=== PATIENT | female | born 1990 | race Hispanic/Latino ===

== ENCOUNTER 2018-05-05 22:01 | Emergency (ER) | payer OTHER ==
[~2018-05-05] VITALS: Ht 157.5 cm; Wt 106.6 kg
[~2018-05-05 22:01] MED LIST: AMITRIPTYLINE H25 MG PO; LISINOPRIL-HCT1 EAC2 PO; MICROGESTIN1 EAC1 PO; PHENTERMINE H37.5 MG PO
--- OUTSIDE RECORDS SUMMARY | 2018-05-05 22:04 | XMS REPORT | Encounter Summary ---
Author Organization Unknown Address [address] [place] [address] Phone [phone] Reason for Visit Medical Complaint Instructions 1. Influenza-like symptoms rapid flu (A+B) 2. Tachycardia Discussion Note: None recorded. Patient educational handouts: No information available. Plan of Care Patient Instructions otc tylenol and ibuprofen for fever and body aches. increase fluids. follow up pcp Reminders Provider Appointments None recorded. Lab Rapid Flu (A+B) 10/18/2016 [facility] Referral None recorded. Procedures None recorded. Surgeries None recorded. Imaging None recorded. Medications Name Start Date lisinopril 10 mg-hydrochlorothiazide 12.5 mg tablet sulfamethoxazole 800 mg-trimethoprim 160 mg tablet Xopenex HFA 45 mcg/actuation aerosol inhaler Medications Administered None recorded. Vitals Height Weight BMI Blood Pressure 5 ft 2 in 221 lbs 40.4 110/80 Lab Results Date Name Specimen Result Interpretation Description Value Range Status Address Rapid Flu (A+B) Influenza a negative [facility]: [address] [place] [address] Influenza B negative [facility]: [address] [place] [address] Allergies Code Code System Name Reaction Severity Onset 6922 RxNorm Metronidazole Problems Name Status Onset Date Source Candidiasis of Vagina Active Encounter Acute Conjunctivitis Active Encounter Dysfunction of Eustachian Tube Active Encounter Acute Sinusitis Active Encounter Acute Maxillary Sinusitis Active Encounter Acute Pharyngitis Active Encounter Acute Tonsillitis Active Encounter Acute Upper Respiratory Infection Active Encounter Allergic Rhinitis Active Encounter Exacerbation of Asthma Active Encounter Indigestion Active Encounter Appendicitis Active History Nausea and Vomiting Active Encounter Right Lower Quadrant Pain Active Encounter Procedures Date Name Performed by 07/10/2005 Dilation and Curettage Information not available Cholecystectomy Information not available Vaccine List Vaccine Type influenza, injectable, quadrivalent 03/09/2016 meningococcal MCV4P 02/16/2012 Tdap 08/05/2007 Social History Smoking Status Never Smoker Past Encounters 10/18/2016 Influenza-like Symptoms; Tachycardia SHARITA Diana-C: [address] [place] [address], Ph. History of Present Illness Awdbt-Lrsufrdteb-Hhyqtpi Reported By: Patient HPI: Location: head/sinuses. Quality: nasal/sinus congestion. Duration: 2days. Severity: moderate. Onset/Timing: gradual. Context: no foreign travel, non- smoker, sick contact. Modifying factors: OTC medication. Associated Symptoms: no sputum production, no shortness of breath, no wheezing, no change in number of pillows needed to sleep at night, no sweats, no significant weight gain, no significant weight loss, no morning cough, no sore throat, no vomiting, no diarrhea, no rash, no nausea, no fever, no headache, fatigue, fever, muscle aches Review of Systems:ROS as noted in the HPI Review of Systems Basic Reported By: Patient Physical Exam Adult Basic, Adult Female Complete Reported By: Patient Constitutional: General Appearance: obese. Level of Distress: NAD. Ambulation: ambulating normally Psychiatric: Mental Status: active and alert Eyes: Lids and Conjunctivae: non-injected, no discharge Dxu-Ibhe-Dcggp-Throat: Ears: no lesions on external ear, no outer ear tenderness, EACs clear, TMs clear. Hearing: no hearing loss. Nose: no lesions on external nose, nasal discharge--rhinorrhea; congestion. Lips, Teeth, and Gums: no mouth or lip ulcers. Oropharynx: moist mucous membranes, no erythema, no exudates, tonsils not enlarged Neck: Neck: trachea midline. Lymph Nodes: no cervical LAD Lungs: Respiratory effort: no dyspnea, no tachypnea, no use of accessory muscles, no intercostal retractions. Auscultation: breath sounds normal Cardiovascular: Heart Auscultation: no murmurs, tachycardia
--- OUTSIDE RECORDS SUMMARY | 2018-05-05 22:04 | XMS REPORT | Encounter Summary ---
Author Organization Unknown Address [address] [place] [address] Phone [phone] Reason for Visit Medical Complaint Instructions 1. Gastroenteritis gastroenteritis: care instructions oral rehydration: care instructions loperamide 2 mg capsule ondansetron 4 mg disintegrating tablet Discussion Note Pt is in no apparent acute distress; Verbalizes understanding of and agreement with all instructions with no questions at this time. Plan of Care Patient Instructions Take all medications as directed. Follow up with your PCP as needed. Seek additional medical care with new or worsening symptoms, or if symptoms do not resolve in 3-4 days. Thank you for allowing me to participate in your healthcare! Reminders Provider Appointments None recorded. Lab None recorded. Referral None recorded. Procedures None recorded. Surgeries None recorded. Imaging None recorded. Medications Name Start Date lisinopril 10 mg-hydrochlorothiazide 12.5 mg tablet loperamide 2 mg capsule 2 capsules PO x1, then 1 capsule PO after each loose stool; Max: 8 capsules/day ondansetron 4 mg disintegrating tablet Take 2 tablets every 12 hours by oral route as needed. ProAir HFA 90 mcg/actuation aerosol inhaler propranolol 20 mg tablet Medications Administered None recorded. Vitals Height Weight BMI Blood Pressure 5 ft 2 in 230 lbs 42.1 kg/m2 118/65 mm[Hg] Lab Results None recorded. Allergies Code Code System Name Reaction Severity Status Onset 6922 RxNorm Metronidazole Active Problems Name Status Onset Date Source Candidiasis of Vagina Active Encounter Acute Conjunctivitis Active Encounter Dysfunction of Eustachian Tube Active Encounter Acute Maxillary Sinusitis Active Encounter Acute Pharyngitis Active Encounter Acute Tonsillitis Active Encounter Acute Upper Respiratory Infection Active Encounter Allergic Rhinitis Active Encounter Exacerbation of Asthma Active Encounter Indigestion Active Encounter Nausea and Vomiting Active Encounter Right Lower Quadrant Pain Active Encounter Procedures Date Name Performed by 07/10/2005 Dilation and Curettage Information not available Cholecystectomy Information not available Vaccine List Vaccine Type influenza, injectable, quadrivalent 03/10/2016 meningococcal MCV4P 02/16/2012 Tdap 08/06/2007 Social History Smoking Status Never Smoker Past Encounters 11/05/2017 Gastroenteritis Ray Tuttle, [employer]UCK[employer] CHECKER-C: [address] [facility], [place] [address], Ph. History of Present Illness Fzvwud-Tonixkyi-Stbbvjln / Abdominal Pain Reported By: Patient HPI: Quality: watery, frequent. Severity: severe, causing awakening from sleep. Duration: present for < 1 week. Onset/Timing: worse with meals, 4-10 times a day. Context: no recent travel, possible food source. Aggravating factors: eating, fatty foods. Associated Symptoms: no excess gas, no fever/chills, no rash, no joint pain, no weight loss, no nausea, no vomiting, no heartburn, no blood in stool, no mucus in stool, no black or tarry stools, no weakness, no nutrient deficiency, no headache, no feeling of fullness/mass in throat, no muscle aches, no bitter taste in the mouth, no difficulty swallowing (dysphagia), abdominal pain, cramping, bloating Review of Systems:ROS as noted in the HPI Review of Systems Basic Reported By: Patient Physical Exam Adult Basic, Adult Female Complete Reported By: Patient Constitutional: General Appearance: healthy-appearing, well-nourished, well-developed. Level of Distress: NAD. Ambulation: ambulating normally Psychiatric: Mental Status: active and alert. Orientation: to time, to place, to person Eyes: Lids and Conjunctivae: non-injected, no discharge, no pallor. Pupils: PERRLA. Corneas: grossly intact. EOM: EOMI. Lens: clear. Sclerae: non-icteric. Vision: acuity grossly intact Ako-Deat-Dzqze-Throat: Ears: no lesions on external ear, no outer ear tenderness, EACs clear, TMs clear. Hearing: no hearing loss. Nose: no lesions on external nose, nares patent, no septal deviation, nasal passages clear, no sinus tenderness, no nasal discharge. Lips, Teeth, and Gums: no mouth or lip ulcers, no bleeding gums, normal dentition. Oropharynx: moist mucous membranes, no erythema, no exudates, tonsils not enlarged Neck: Neck: supple, trachea midline, no masses, FROM. Lymph Nodes: no cervical LAD, no supraclavicular LAD Lungs: Respiratory effort: no dyspnea, no tachypnea, no use of accessory muscles, no intercostal retractions. Auscultation: breath sounds normal Cardiovascular: Heart Auscultation: RRR, no murmurs Neurologic: Gait and Station: normal gait, normal station Skin: Inspection and palpation: no rash, no lesions Abdomen: Bowel Sounds: diminished. Inspection and Palpation: soft, non-distended, no guarding, no rebound tenderness, no masses, no CVA tenderness, epigastric tenderness. Liver: non-tender, no hepatomegaly. Spleen: non-tender, no splenomegaly. Hernia: none palpable
--- OUTSIDE RECORDS SUMMARY | 2018-05-05 22:04 | XMS REPORT | Continuity of Care Document ---
Author Author [facility] Address Unknown Phone Unavailable Problems Problem Status Onset Date Classification Date Reported Comments Source Cough 01/28/2018 Diagnosis 01/28/2018 [facility] Body mass index 30+ - obesity 01/28/2018 Diagnosis 01/28/2018 [facility] Fluid level behind tympanic membrane 01/28/2018 Diagnosis 01/28/2018 [facility] Pain in throat 01/28/2018 Diagnosis 01/28/2018 [facility] Seasonal allergic rhinitis 01/28/2018 Diagnosis 01/28/2018 [facility] Gastroenteritis 11/05/2017 Diagnosis 11/05/2017 [facility] Influenza-like symptoms 10/18/2016 Diagnosis 10/18/2016 [facility] Tachycardia 10/18/2016 Diagnosis 10/18/2016 [facility] Allergic Rhinitis Problem 01/28/2018 [facility] Candidiasis of Vagina Problem 11/05/2017 [facility] Acute Conjunctivitis Problem 11/05/2017 [facility] Dysfunction of Eustachian Tube Problem 11/05/2017 [facility] Acute Maxillary Sinusitis Problem 11/05/2017 [facility] Acute Pharyngitis Problem 11/05/2017 [facility] Acute Tonsillitis Problem 11/05/2017 [facility] Acute Upper Respiratory Infection Problem 11/05/2017 [facility] Exacerbation of Asthma Problem 11/05/2017 [facility] Indigestion Problem 11/05/2017 [facility] Nausea and Vomiting Problem 11/05/2017 [facility] Right Lower Quadrant Pain Problem 11/05/2017 [facility] Acute Sinusitis Problem 10/18/2016 [facility] Appendicitis Problem 10/18/2016 [facility] Medications Medication Details Route Status Patient Instructions Ordering Provider Order Date Source benzonatate 100 MG Oral Capsule benzonatate 100 mg capsule one to two three caps TID prn #60 Active [facility] Hydrochlorothiazide 12.5 MG / Lisinopril 10 MG Oral Tablet lisinopril 10 mg-hydrochlorothiazide 12.5 mg tablet Active [facility] Medrol (Adam) 4 mg tablets in a dose pack Medrol (Adam) 4 mg tablets in a dose pack as directed Active [facility] 200 ACTUAT Albuterol 0.09 MG/ACTUAT Metered Dose Inhaler [ProAir] ProAir HFA 90 mcg/actuation aerosol inhaler Active [facility] Propranolol Hydrochloride 20 MG Oral Tablet propranolol 20 mg tablet Active [facility] topiramate 50 MG Oral Tablet topiramate 50 mg tablet Active [facility] Loperamide Hydrochloride 2 MG Oral Capsule loperamide 2 mg capsule 2 capsules PO x1, then 1 capsule PO after each loose stool; Max: 8 capsules/day Active [facility] Ondansetron 4 MG Disintegrating Oral Tablet ondansetron 4 mg disintegrating tablet Take 2 tablets every 12 hours by oral route as needed. Active [facility] Sulfamethoxazole 800 MG / Trimethoprim 160 MG Oral Tablet sulfamethoxazole 800 mg-trimethoprim 160 mg tablet Active [facility] 200 ACTUAT Levalbuterol 0.045 MG/ACTUAT Metered Dose Inhaler [Xopenex] Xopenex HFA 45 mcg/actuation aerosol inhaler Active [facility] Allergies, Adverse Reactions, Alerts Substance Category Reaction Severity Reaction type Status Date Reported Comments Source Metronidazole Allergy to substance 07/28/2011 [facility] Immunizations Immunization Date Given Site Status Last Updated Comments Source influenza, injectable, quadrivalent 03/10/2016 completed [facility] meningococcal MCV4P 02/16/2012 completed [facility] Tdap 08/06/2007 completed [facility] Results Order Name Results Value Reference Range Date Interpretation Comments Source Influenza A negative 10/18/2016 [facility] Influenza B negative 10/18/2016 [facility] Vital Signs Vital Sign Value Date Comments Source Diastolic (mm Hg) 80 01/28/2018 [facility] Height 62 01/28/2018 [facility] Systolic (mm Hg) 118 01/28/2018 [facility] Weight 227 01/28/2018 [facility] Diastolic (mm Hg) 65 11/05/2017 [facility] Height 62 11/05/2017 [facility] Systolic (mm Hg) 118 11/05/2017 [facility] Weight 230 11/05/2017 [facility] Diastolic (mm Hg) 80 10/18/2016 [facility] Height 62 10/18/2016 [facility] Systolic (mm Hg) 110 10/18/2016 [facility] Weight 221 10/18/2016 [facility] Encounters Location Location Details Encounter Type Encounter Number Reason For Visit Attending Provider ADM Date DC Date Status Source [place] - [facility] - [id number] Miguel Live, CORNICE UPHOLSTERER-C: [address] [place] [address], Ph. [id number] Miguel Live 10/18/2016 [facility] [place] - [facility] - [id number] BRITTA NewbyP-C: [address] [place] [address], Ph. [id number] Ray Tuttle 11/05/2017 [facility] [place] - [facility] - [id number] DAVID Donahue-C: [address] [place] [address], Ph. [id number] Lisy Low 01/28/2018 [facility] Procedures Procedure Code Date Perfomer Comments Source Dilation and Curettage 93068 07/10/2005 [facility] Dilation and Curettage 07/10/2005 [facility] Cholecystectomy [facility]
--- OUTSIDE RECORDS SUMMARY | 2018-05-05 22:04 | XMS REPORT | Clinical Summary ---
Author Author [facility] Address Unknown Phone Unavailable Care Team Providers Care Adolescent Counselor Name Role Phone Argelia Randolph MD PCP Allergies Active Allergy Reactions Severity Noted Date Comments Metronidazole Other (See Comments) 11/24/2016 High fever and flu like symptoms. Current Medications Prescription Sig. Disp. Refills Start End Date Status Date LISINOPRIL-HCTZ 10-12.5 daily. Active MG COMBO DOSE Active Problems Problem Noted Date Vulval boil 11/24/2016 Overview: On mons, treat with Bactrim Well woman exam with routine gynecological exam 11/24/2016 Encounters Date Type Specialty Care Team Description 02/20/2018 [employer] [facility] Ivis Bruner MD Routine medical exam Wellness Cynthia Silva MA (Primary Dx) after 05/04/2017 Family History Medical History Relation Name Comments Diabetes Father Mikey borderline diabetic Cervical cancer Maternal Aunt Diabetes Sister Cordelia diabetic Relation Name Status Comments Father Mikey Maternal Aunt Sister Cordelia Social History Tobacco Use Types Packs/Day Years Used Date Never Smoker Smokeless Tobacco: Never Used Alcohol Use Drinks/Week oz/Week Comments Yes on ocassion, maybe once a month if that Sex Assigned at Date Recorded Not on file Last Filed Vital Signs Not on file Plan of Treatment Health Maintenance Due Date Last Done Comments INFLUENZA VACCINE 02/07/2018 CERVICAL CANCER SCREENING 11/25/2019 11/24/2016 Procedures Procedure Name Priority Date/Time Associated Diagnosis Comments WELLNESS EVENT QFT Routine 02/20/2018 Routine medical exam Results for this 1:40 PM CDT procedure are in the results section. after 05/04/2017 Results * Wellness event QFT (02/20/2018 1:40 PM) Quantiferon TB gold plus Negative Negative [facility] Comment: Interpretive Data: Quantiferon TB Gold Plus Interferon gamma release is measured for specimens from each of the four collection tubes. A qualitative result (Negative, Positive, or Indeterminate) is based on interpretation of the four values, NIL, MITOGEN minus NIL (MITOGEN-NIL), TB1 minus NIL (TB1-NIL), and TB2 minus NIL (TB2-NIL). The NIL value represents nonspecific reactivity produced by the patient specimen. The MITOGEN-NIL value serves as the positive control for the patient specimen, demonstrating successful lymphocyte activity. The TB1-NIL tube specifically detects CD4+ lymphocyte reactivity, specifically stimulated by the TB1 antigens. The TB2-NIL tube detects both CD4+ and CD8+ lymphocyte reactivity, stimulated by TB2 antigens. An overall Negative result does not completely rule out TB infection. A false-positive result in the absence of other clinical evidence of TB infection is not uncommon. Refer to: Updated Guidelines for Using Interferon Gamma Release Assays to Detect Mycobacterium tuberculosis Infection --- [place], 2010 (http://www.cdc.gov/mmwr/previ ew/mmwrhtml/qg8915n2.htm), for more information concerning test performance in low-prevalence populations and use in occupational screening. Quantiferon plus TB1 0.00 0.00 - 0.34 IU/mL [facility] minus NIL Quantiferon plus TB2 0.00 0.00 - 0.34 IU/mL [facility] minus NIL Quantiferon mitogen minus >10.00 IU/mL [facility] NIL Quantiferon NIL 0.10 IU/mL [facility] Comment: Performed by [facility], [address] [place], [place] [id number] [email or web address], Berto Washington MD - Lab. Director Specimen Serum Performing Organization Address City/State/Zipcode Phone Number [facility] [address] [place] [address] after 05/04/2017 Insurance Payer Benefit Subscriber ID Type Phone Address Plan / Group KRYSTEN JAMISON xxxxxxxxxxx HMO ACCESS/NET WORK Home: [address] [place], [place] [phone] [place] [address]
--- OUTSIDE RECORDS SUMMARY | 2018-05-05 22:04 | XMS REPORT | Encounter Summary ---
Author Organization Unknown Address [address] [place] [address] Phone [phone] Care Team Providers Care Chemical Analyst Name Role Phone Danna Seymour [facility] 3 [phone] Reason for Visit Medical Complaint Instructions 1. Seasonal allergic rhinitis seasonal allergies: care instructions Medrol (Adam) 4 mg tablets in a dose pack 2. Pain in throat sore throat: care instructions 3. Fluid level behind tympanic membrane 4. Body mass index 30+ - obesity body mass index: care instructions 5. Cough cough: care instructions benzonatate 100 mg capsule Discussion Note discussed with patient if symptoms and signs increase or persist return to clinic or follow up with PCP. May take over the counter tylenol to ease sinus discomfort, or ibuprofen if indicated. patient verbalized understanding. Plan of Care Reminders Provider Appointments None recorded. Lab None recorded. Referral None recorded. Procedures None recorded. Surgeries None recorded. Imaging None recorded. Medications Name Start Date benzonatate 100 mg capsule one to two three caps TID prn #60 lisinopril 10 mg-hydrochlorothiazide 12.5 mg tablet Medrol (Adam) 4 mg tablets in a dose pack as directed ProAir HFA 90 mcg/actuation aerosol inhaler propranolol 20 mg tablet topiramate 50 mg tablet Medications Administered None recorded. Vitals Height Weight BMI Blood Pressure 5 ft 2 in 227 lbs 41.5 kg/m2 118/80 mm[Hg] Lab Results None recorded. Allergies Code Code System Name Reaction Severity Status Onset 6922 RxNorm Metronidazole Active Problems Name Status Onset Date Source Allergic Rhinitis Active Encounter Procedures Date Name Performed by 07/10/2005 Dilation and Curettage Information not available Cholecystectomy Information not available Vaccine List Vaccine Type influenza, injectable, quadrivalent 03/10/2016 meningococcal MCV4P 02/16/2012 Tdap 08/06/2007 Social History Smoking Status Never Smoker Past Encounters 01/28/2018 Seasonal Allergic Rhinitis; Pain in Throat; Fluid Level behind Tympanic Membrane; Body Mass Index 30+ - Obesity; Cough Lisy Low PA-C: [address] [place] [address], Ph. History of Present Illness Ivgvt-Llqpoidfym-Tufvlau Reported By: Patient HPI: Location: head/sinuses, throat. Quality: productive cough, sore throat, nasal/sinus congestion, hacking cough. Duration: 4days. Severity: mild. Onset/Timing: sudden. Context: no sick contacts, no foreign travel, non-smoker. Modifying factors: OTC medication. Associated Symptoms: no sputum production, no shortness of breath, no wheezing, no change in number of pillows needed to sleep at night, no sweats, no significant weight gain, no significant weight loss, no vomiting, no diarrhea, no rash, no nausea, no fever, no muscle aches, no headache, morning cough, sore throat; productive cough with white to clear sputum, bloody nasal discharge Review of Systems Basic Reported By: Patient Constitutional: Constitutional: no fever Eyes: Eyes: no eye complaints Hxqs-Tobq-Fadmw-Throat: Ears: ; plugged up ears R>L. Nose: nose/sinus problems. Mouth/Throat: no bleeding gums, no mouth complaints, no teeth problems, sore throat Cardiovascular: Cardiovascular: no chest pain, no known heart murmur, shortness of breath Respiratory: Respiratory: no wheezing, no shortness of breath, cough Gastrointestinal: Gastrointestinal: no abdominal pain, no vomiting / diarrhea Genitourinary: Genitourinary: no urinary complaints, no discharge Musculoskeletal: Musculoskeletal: no muscle aches, no muscle weakness, no arthralgias/joint pain, no back pain Skin: Skin: no abnormal / changing mole, no jaundice, no rashes Neurologic: Neurologic: no loss of consciousness, no weakness, no numbness, no seizures, no dizziness, no headaches Physical Exam Adult Basic Reported By: Patient Constitutional: General Appearance: obese. Level of Distress: NAD. Ambulation: ambulating normally Psychiatric: Mental Status: active and alert. Orientation: to time, to place, to person Eyes: Lids and Conjunctivae: non-injected, no discharge, no pallor. Pupils: PERRLA. EOM: EOMI. Sclerae: non-icteric. Vision: acuity grossly intact Nzi-Qacq-Rmhlh-Throat: Ears: no lesions on external ear, no outer ear tenderness, EACs clear, TMs clear, middle ear fluid. Hearing: no hearing loss. Nose: no lesions on external nose, nares patent, no septal deviation, nasal passages clear, no sinus tenderness, nasal discharge, nasal discharge--purulent, nasal discharge--rhinorrhea, post nasal drip; no bloody visible discharge. Lips, Teeth, and Gums: no mouth or lip ulcers, no bleeding gums, normal dentition. Oropharynx: moist mucous membranes, no erythema, no exudates, tonsils not enlarged; PND at post pharynx Neck: Neck: supple, trachea midline, no masses, FROM. Lymph Nodes: no cervical LAD, no supraclavicular LAD Lungs: Respiratory effort: no dyspnea, no tachypnea, no use of accessory muscles, no intercostal retractions. Auscultation: breath sounds normal Cardiovascular: Heart Auscultation: RRR, no murmurs
[2018-05-05 23:29] LABS: BACTERIA,URINE RARE /HPF; BILIRUBIN,URINE NEGATIVE (NEGATIVE); CLARITY,URINE CLEAR (CLEAR); COLOR,URINE YELLOW (YELLOW); EPITHELIAL CELLS,URINE RARE /LPF; KETONES,URINE NEGATIVE (NEGATIVE); LEUKOCYTE ESTERASE ,URINE NEGATIVE (NEGATIVE); NITRITE,URINE NEGATIVE (NEGATIVE); PROTEIN,URINE DIPSTICK NEGATIVE (NEGATIVE); URINE UROBILINOGEN 1 mg/dL (0.2 - 1); WBC,URINE (MAN) 0-5 /HPF (0-5)
[2018-05-05 23:30] LABS: MUCUS,URINE MANY (RARE); PREGNANCY TEST, URINE NEGATIVE (NEGATIVE)
[2018-05-06] MEDS ORDERED: TRAMADOL HCL 50 MG TAB PO ONE (00:30)
--- NOTE | 2018-05-06 01:11 | Diagnostic Imaging Report ---
ABDOMEN-1VIEW (KUB) Clinical history: ^ABD PAIN AFTER INTERCOURSE, PT HAS IUD ^[id number] ^0025 ^Y Technique: AP view abdomen Comparison: None Findings: Abdomen: No dilated loops of small or large bowel. No supine evidence of free air. Note the hemidiaphragms are excluded from view. Other: Cholecystectomy clips. IUD projects over the pelvis. Impression: Nonobstructive bowel gas pattern. Signed by: Dr Tammie Colon MD on 05/06/2018 1:08 AM
== END 2018-05-06 02:25 | disposition home or self-care (01) ==
LOC: ER 22:01
DX: R10.2 Pelvic and perineal pain (principal); N94.10 Unspecified dyspareunia; I10 Essential (primary) hypertension
CPT/HCPCS: 74018; 81001; 81025; 99283